=== PATIENT | female | born 1995 ===

== ENCOUNTER 2023-05-20 01:53 | Emergency (ER) | payer MEDICARE, SELFPAY ==
[2023-05-20 01:53] VITALS: BMI 31.1
[2023-05-20 01:56] VITALS: BP 127/84
[2023-05-20 02:06] VITALS: BP 122/70
[2023-05-20] MEDS: XOPENEX 1.25 MG INHALANT SOLUTION INH (02:07)
[2023-05-20] MEDS: DECADRON 10 MG PO (02:07)
[2023-05-20 03:00] VITALS: BP 120/68
[2023-05-20 03:35] VITALS: BP 110/71
--- NOTE | 2023-05-20 03:56 | ED.GENMED ---
History of Present Illness
General
Chief Complaint: Breathing Problem
Source: patient
Exam Limitations: none
Time Seen by Provider: 05/20/23 02:03
Nursing documentation reviewed up to this point in time: agreed with
Travel History
Have you had any contact with someone who has COVID-19?: No
Do you have any symptoms of coronavirus? Fever > 100 degrees, chills, cough, shortness of breath, sore throat, loss of taste or smell, muscle aches, or headache?: Yes
Symptoms:: cough
History of Present Illness
History of Present Illness:
This a pleasant 27 old female who presents with acute asthma exacerbation. Patient states that she had a flareup. She typically takes Xopenex via nebulizer. She went to go give herself a treatment and the machine plastic housing cracked making it
unusable. She also ran out of her Symbicort so she had to come to the emergency department. Patient has enough Xopenex Nebules at home. She does also have the tubing. Denies fever or chills.
Past History
Past History
ED Past Medical History: Other (gastroparesis, crohn's, POTS)
ED Past Surgical History: Bowel resection and Other (intraabdominla abscesses)
Social History
Tobacco: Non-smoker
Alcohol: None
Drug: None
Personal: Single
Living: with family
Employment: Employed
Review of Systems
Review of Systems
Allergies reviewed?: Yes
All Other Systems: ROS reviewed and negative except as documented in HPI and ROS
Constitutional: Reports no symptoms
EENT: Reports no symptoms
Respiratory: Reports cough and trouble breathing
Cardiac: Reports no symptoms
ABD/GI: Reports no symptoms
: Reports no symptoms
Musculoskeletal: Reports no symptoms
Skin: Reports no symptoms
Neurological: Reports no symptoms
Endocrine: Reports no symptoms
Hematologic/Lymphatic: Reports no symptoms
Psychiatric: Reports no symptoms
Phy Exam
General Physical Exam
General Presentation: well appearing and no apparent distress
General Skin: warm and dry
General Habitus: normal
General Mental: alert
General Hydration: appears well hydrated
ENT Exam
ENT Exam: EOMI, pharynx normal, neck supple and normocephalic
Eye Exam
Eye Exam: PERRL, cornea clear and conjunctiva normal
Cardiovascular Exam
Cardiovascular Exam: regular rate/rhythm, no edema, no murmur and normal peripheral pulses
Pulmonary Exam
Pulmonary Exam: lungs clear, no respiratory distress, no rales, no crackles, no rhonchi, no stridor, no cough and generalized wheezing
Cough: non productive cough
Gastrointestinal Exam
Gastrointestinal Exam: normal bowel sounds, non tender, soft, no organomegaly, no pulsatile mass and non distended
Neurological Exam
Neurological Exam: alert, oriented x3, no motor deficits and speech normal
Musculoskeletal Exam
Musculoskeletal Exam: full ROM and no edema
Skin Exam
Skin Exam: normal color, warm/dry, no rash and no petechia
Psychiatric Exam
Psychiatric Exam: normal mood/affect
Course
Orders/Labs/Results
Orders:
Orders
05/20/23 02:03
Dexamethasone Pf [Decadron] 10 mg PO NOW STA
Levalbuterol [Xopenex 1.25 mg Inhalant Solution] 1.25 mg INH R NOW STA
05/20/23 02:04
CR Chest - 2 Views Urgent
Comment:
Reason For Exam: dyspnea
Vital Signs
Initial and Last Documented VS:
Initial Vital Signs
Temp Pulse Resp BP Pulse Ox
98.2 F 95 20 127/84 100
05/20/23 01:56 05/20/23 01:56 05/20/23 01:56 05/20/23 01:56 05/20/23 01:56
Last Documented Vital Signs
Temp Pulse Resp BP Pulse Ox
98.2 F 89 12 110/71 99
05/20/23 01:56 05/20/23 03:15 05/20/23 03:15 05/20/23 03:35 05/20/23 03:35
*Critical Care Note
Total Time (30-74mins, 75-104mins- exclusive of procedures): Not Applicable
ED Attending Note
-
Portions of this chart may have been created with voice recognition software.� Occasional wrong word or��sound alike� substitutions may have occurred due to the inherent limitations of voice recognition software.
Discharge Plan
Departure
Patient Disposition: Home (Routine Discharge)
Date of Disposition: 05/20/23
Time of Disposition: 03:54
Patient with high blood pressure during this ER visit?: Yes
Condition: Good
Discharge Problem:
Asthma exacerbation
Instructions: Asthma, Adult (DC), BLOOD PRESSURE
Prescriptions:
New
budesonide-formoterol [Breyna] 160-4.5 mcg/actuation HFA aerosol inhaler
1 puff inhalation ONCE Qty: 10.2 1RF
No Action
dicyclomine 20 mg tablet
20 mg PO TID PRN (Reason: abdominal pain) Qty: 20 0RF
Paxlovid 300 mg (150 mg x 2)-100 mg tablets,dose pack
See Rx Instructions .ROUTE .COMPLEX Qty: 30 0RF
Rx Instructions:
take TWO 150 mg tablets of nirmatrelvir with ONE 100 mg tablet of ritonavir twice daily for 5 days
Activity Restrictions/Additional Instructions:
It was a pleasure meeting you and taking part in your care. We hope for your continued healing and wellness.
Please read discharge instructions in their entirety. However, they are for general education and may not describe your exact diagnosis at discharge. Information on your ER visit and medical conditions were discussed with you along with appropriate
follow up information...
If indicated, please take your medications as instructed and indicated on discharge paperwork.
Please schedule a follow up appointment as directed. Call to schedule an appointment
Please return to the emergency department with ANY change in, persisting, or worsening of symptoms. If any of your symptoms do not improve, or persist, or become more severe within 6-12 hours, please return to the emergency department for further
care.
Please return to the emergency department if you develop a headache, neck pain/stiffness, fever greater than 100.4F, chest pain, shortness of breath, persistent nausea, vomiting, slurred speech, difficulty walking, numbness/tingling, weakness, signs
of infection or any other symptoms that are worrisome to you.
If you have any questions or concerns please do not hesitate to call the Hospital at or E-mail me directly at [email or web address]
Interventions
Interventions:
*Risk Screen - Suicide Last Done: 05/20/23 01:56
*General Assessment Last Done: 05/20/23 01:56
*Neglect/Abuse Screening Last Done: 05/20/23 01:56
ED- Fall Risk Assessment Last Done: 05/20/23 01:56
*ED COVID-19 Vaccine History Last Done: 05/20/23 01:56
*Nursing Disposition Last Done: 05/20/23 04:32
ED- Cardiac Assessment Last Done: 05/20/23 02:12
ED- Pulmonary Assessment Last Done: 05/20/23 02:12
Discharge Date and Time
Discharge Date/Time: 05/20/23 04:33
Print Language: CAMEROONIAN
== END 2023-05-20 04:33 | disposition home or self-care (01) ==
LOC: EMR 01:53
PROVIDERS: EMERGENCY PHYSICIAN Student in an Organized Health Care Education/Training Program; FAMILY PHYSICIAN Family Medicine
DX: J45.901 Unspecified asthma with (acute) exacerbation (principal); K50.90 Crohn's disease, unspecified, without complications; K31.84 Gastroparesis; G90.A Postural orthostatic tachycardia syndrome [POTS]
CPT/HCPCS: 99283; 94640; 71046

== ENCOUNTER 2023-06-20 10:52 | Emergency (ER) | payer MEDICARE, SELFPAY ==
[2023-06-20 11:07] VITALS: BP 128/84
[2023-06-20] MEDS: OMNIPAQUE 50 ML PO (13:13)
[2023-06-20] MEDS: DELTASONE 50 MG PO (13:13)
[2023-06-20] MEDS: DUONEB 3 ML INH (13:13)
--- NOTE | 2023-06-20 13:29 | ED.GENMED ---
History of Present Illness
General
Chief Complaint: Abdominal Symptoms
Source: patient
Exam Limitations: none
Time Seen by Provider: 06/20/23 11:47
Nursing documentation reviewed up to this point in time: agreed with
Travel History
Have you had any contact with someone who has COVID-19?: No
Do you have any symptoms of coronavirus? Fever > 100 degrees, chills, cough, shortness of breath, sore throat, loss of taste or smell, muscle aches, or headache?: No
History of Present Illness
History of Present Illness:
28-year-old female with a past medical history of POTS, asthma, Crohn's disease status post multiple abdominal surgeries who presents to the emergency department for evaluation of three primary complaints: She complains of increased shortness of
breath and coughing, increasing abdominal pains and nausea with diarrhea, increasing frequency of headaches.
Regarding her shortness of breath and coughing: Patient reports that for the past week or 2 she has been having increasing shortness of breath and wheezing, coughing consistent with her asthma symptoms. She says that her symptoms seem to be much
worse at night. She says that over the past week she has had increasing symptoms and that she has increased her albuterol nebulizer use�she is now using 2 albuterol nebulizers a day as well as her HFA inhaler. She says symptoms do not seem to be
going away when she is one of the reason she came to the emergency to be assessed. She has not had any chest pain. She has not had fever. She says that allergies are common trigger for her asthma. She denies any history of prior hospitalization
for her asthma.
Regarding her abdominal pain: Patient reports that the symptoms have been acute on chronic. She says that her abdomen 'is not really my friend' and she has been dealing with chronic intermittent abdominal pains for years related to her Crohn's
disease. She says that over the past week she has had more consistent pains mostly located in the left upper abdomen but occasionally radiating across the lower abdomen. She says that pain seem to be exacerbated by food but they never completely
go away. She reports associated nausea but has not had any vomiting. She says she has had some diarrhea over the past few days�nonbloody. She has not had fever. No urinary symptoms. She says that symptoms similar in quality to Crohn's flares in
the past but location is somewhat atypical.
Regarding her headaches: Patient reports that she has been dealing with new headaches that started a few months ago. She describes a pressure sensation in the left side of her face that radiates behind her eye. No clear triggering factors noted,
typically relieved with Excedrin. She says that she has associated photosensitivity when she has the symptoms. She has had occasional nausea. She has not noted any visual aura. She says that her primary doctor told her that it might be a cluster
headache. She says that frequency of her symptoms seems to be increasing and so she was referred to the emergency room to be assessed for this and her other issues by her primary doctor. She has not had any head imaging for these new headaches.
Past History
Past History
ED Past Medical History: Other (gastroparesis, crohn's, POTS)
ED Past Surgical History: Bowel resection and Other (intraabdominla abscesses)
Social History
Tobacco: Non-smoker
Alcohol: None
Drug: None
Personal: Single
Living: with family
Employment: Employed
Review of Systems
Review of Systems
All Other Systems: ROS reviewed and negative except as documented in HPI and ROS
Constitutional: Denies fever or chills
EENT: Denies sore throat or runny nose
Respiratory: Reports cough and trouble breathing
Cardiac: Denies chest pain or palpitations
ABD/GI: Reports abdominal pain, nausea and diarrhea; Denies vomiting or bloody stools
: Denies dysuria, frequency or flank pain
Musculoskeletal: Denies neck pain or back pain
Neurological: Reports headache; Denies dizzy, weakness or numbness
Phy Exam
Physical Exam
Physical Exam:
General: Awake, alert; no acute distress
Head: Normocephalic, atraumatic
Eyes: Conjunctiva normal, EOMI, pupils equal round and reactive to light bilaterally
Throat: Airway intact, handling secretions
Neck: Trachea midline, supple without meningismus
Lungs: Faint scattered wheezing, normal respiratory rate, normal oxygen saturation, normal work of breathing
Heart: Regular rate and rhythm, no murmurs, gallops, or rubs
Abd: Soft, non distended, diffusely tender maximal in the left upper quadrant with no masses and no peritoneal signs
Neuro: Cranial nerves grossly intact, speech fluid, no gross motor or sensory deficits
Skin: no rash
Extremities: No edema in extremities, equal pulses in all extremities
Scores
Heart Failure Risk
Heart Failure Risk Score: Not Applicable
Heart Score for Chest Pain Patients
STEMI patient?: Not applicable
Withdrawal Assessment of Alcohol
Withdrawal Assessment Completed?: Not applicable
Course
Orders/Labs/Results
Orders:
Orders
06/20/23 12:49
CT Head W/o Iv Contrast Urgent
Comment:
Reason For Exam: new onset left sided headaches, nausea
Ipratropium/Albuterol Sulfate [Duoneb] 3 ml INH R NOW ONE
Prednisone [Deltasone] 50 mg PO NOW STA
06/20/23 12:50
Complete Blood Count/With Diff Urgent
Comprehensive Metabolic Panel Urgent
HCG, Serum Qualitative Screen Urgent
Test Result ONCE
CR Chest - 2 Views Urgent
Comment:
Reason For Exam: sob
06/20/23 12:51
CT Abd/pel (oral only)-[facility] Only Urgent
Comment:
Reason For Exam: abdominal pain, h/o multiple surgeries;dye allergy
Iohexol [Omnipaque] See Protocol PO NOW STA
06/20/23 13:19
Urinalysis Reflex To Culture Urgent
Date Specimen was Collected: 06/20/23
Time Specimen was Collected: 13:01
Vital Signs
Initial and Last Documented VS:
Initial Vital Signs
Temp Pulse Resp BP Pulse Ox
37.1 C 71 18 128/84 100
06/20/23 11:07 06/20/23 11:07 06/20/23 11:07 06/20/23 11:07 06/20/23 11:07
Last Documented Vital Signs
Temp Pulse Resp BP Pulse Ox
37.1 C 71 18 128/84 100
06/20/23 11:07 06/20/23 11:07 06/20/23 11:07 06/20/23 11:07 06/20/23 11:07
MDM/Problems Addressed
Differential Diagnosis Includes:
Shortness of breath: Asthma exacerbation, bronchitis, pneumonia, anemia
Abdominal pains: Crohn's exacerbation, gastritis, PUD, cholecystitis/cholelithiasis
Headaches: Migraines, tension headache, cluster headache, brain mass, hemorrhage much less likely
MDM/Problems Addressed:
28-year-old female with history as document presents to the emergency room for multiple complaints�complains of shortness of breath and coughing consistent with asthma exacerbations, abdominal pains acute on chronic in the setting of known Crohn's
disease, chronic headaches increasing in frequency.
Regarding her respiratory complaints: The seem consistent with acute asthma exacerbation. She has had increased frequency of albuterol use. She does have some scattered wheezing today but is not in distress, normal oxygen saturation, normal
respiratory rate. Check a chest x-ray to rule out any pneumonia or pneumothorax but will plan to treat with p.o. steroid and nebulizer here, can likely be discharged on an oral steroid for outpatient management of an acute asthma exacerbation.
Regarding her abdominal complaints: Similar in quality but different location and somewhat increased intensity compared to prior Crohn's flares. She is having diarrhea but she says that her stools are nonbloody. Will check basic lab work including
a CBC and a CMP and hCG. Will check a urinalysis. Will send for CT of the abdomen pelvis.
Regarding her headaches: She has no headache at present but has had increased frequency of headaches over the past few months and these are new phenomenon for her. She says she was told it could potentially be a cluster headache by her primary
doctor. Symptoms sound more consistent with migraine by history. Will plan to check CT head given that she has not had any imaging thus far, can likely continue to follow with her primary doctor for this issue.
Chronic conditions affecting care:
Crohn's disease, GERD
Acute Exacerbation and/or Progression of Chronic Illness:
Acute asthma exacerbation managed as above
Acute Exacerbation and/or Progression of Chronic Illness: Asthma
*Radiology
Radiology exam reviewed: preliminary read by ED provider and radiology read reviewed
*Pulse Oximetry
Patient hypoxic: no
*Critical Care Note
Total Time (30-74mins, 75-104mins- exclusive of procedures): Not Applicable
Data Reviewed
Source: patient and records
ED Attending Note
-
Portions of this chart may have been created with voice recognition software.� Occasional wrong word or��sound alike� substitutions may have occurred due to the inherent limitations of voice recognition software.
Discharge Plan
Departure
Prescriptions:
No Action
dicyclomine 20 mg tablet
20 mg PO TID PRN (Reason: abdominal pain) Qty: 20 0RF
Paxlovid 300 mg (150 mg x 2)-100 mg tablets,dose pack
See Rx Instructions .ROUTE .COMPLEX Qty: 30 0RF
Rx Instructions:
take TWO 150 mg tablets of nirmatrelvir with ONE 100 mg tablet of ritonavir twice daily for 5 days
budesonide-formoterol [Breyna] 160-4.5 mcg/actuation HFA aerosol inhaler
1 puff inhalation ONCE Qty: 10.2 1RF
Referrals:
Taran Altamirano DO [Family Provider] -
Interventions
Interventions:
*Risk Screen - Suicide Last Done: 06/20/23 11:11
*General Assessment Last Done: 06/20/23 11:07
*Neglect/Abuse Screening Last Done: 06/20/23 11:07
VY-Vacito-Gnwpwdvity Assessment Last Done: 06/20/23 13:28
ED- Neurological Assessment Last Done: 06/20/23 13:28
Discharge Date and Time
Print Language: AZERI
[2023-06-20 13:44] LABS: Urine Albumin Negative (Neg - Trace); Urine Bilirubin Negative (Negative); Urine Character Clear (Clear); Urine Color Yellow; Urine Glucose Negative (Negative); Urine Ketone Negative (Negative); Urine Leukocyte Negative (Negative); Urine Nitrite Negative (Negative); Urine Occult Blood Negative (Negative); Urine Urobilinogen Negative (Neg - 1+)
[2023-06-20 14:23] LABS: % Basophils 0.3 % (0-2); % Eosinophils 3.4 % (0-6); % Immature Granulocytes 0.3 % (0-0.5); % Lymphocytes 41.1 % (20.5-51.1); % Monocytes 6.2 % (1.7-9.3); % Neutrophils 48.7 % (42.2-75.2); Absolute Eosinophils 0.3 10^3/uL (0-0.7); Absolute Monocytes 0.5 10^3/uL (0.1-0.6); Absolute Neutrophils 3.5 10^3/uL (1.4-6.5); Hematocrit 36.3 % (37.0-47.0); Hemoglobin 12.1 g/dL (12.0-16.0); Mean Corp Hgb Conc. 33.3 g/dL (33.0-37.0); Mean Corpuscular Hgb 30.6 pg (27.0-31.0); Mean Corpuscular Volume 91.9 fL (81.0-99.0); Mean Platelet Volume 10.3 fL (7.4-10.4); Nucleated Red Blood Cells % 0 %; Platelet Count 337 10^3/uL (130-400); Red Blood Cell Count 3.95 10^6/uL (4.20-5.40); White Blood Cell Count 7.3 10^3/uL (4.8-10.8)
[2023-06-20 14:36] LABS: HCG, Serum Qualitative Screen Negative
[2023-06-20 14:38] LABS: ALT (SGPT) 14 U/L (0-35); AST (SGOT) 19 U/L (14-36); Albumin 3.9 g/dl (3.5-5.0); Alkaline Phosphatase 44 U/L (38-126); Blood Urea Nitrogen 11 mg/dl (7-17); Calcium 9.1 mg/dl (8.4-10.2); Carbon Dioxide 23 mmol/L (22-30); Chloride 109 mmol/L (98-107); Glucose 100 mg/dl (70-99); Potassium 3.7 mmol/L (3.5-5.1); Sodium 138 mmol/L (135-145); Total Bilirubin 0.5 mg/dl (0.2-1.3); Total Protein 6.9 g/dl (6.3-8.2); eGFR > 60.00
[2023-06-20 17:01] VITALS: BP 115/80
--- NOTE | 2023-06-20 17:24 | VATNOTE ---
right subq port deaccessed per protocol. Brisk blood return noted prior to.
== END 2023-06-20 18:09 | disposition home or self-care (01) ==
LOC: EMR 10:52
PROVIDERS: EMERGENCY PHYSICIAN Emergency Medicine; FAMILY PHYSICIAN Family Medicine
DX: R10.9 Unspecified abdominal pain (principal); R19.7 Diarrhea, unspecified; R51.9 Headache, unspecified; J45.901 Unspecified asthma with (acute) exacerbation
CPT/HCPCS: 99285; 96374; 94640; 70450; 71046; 74176; 80053; 81003; 84703; 85025